=== PATIENT | female | born 1980 ===

== ENCOUNTER 2022-05-17 06:28 | Day surgery (SDC) | payer OTHER | END 2022-05-17 14:35 | disposition home or self-care (01) | LOC: CIR.AMB 06:28 | PROVIDERS: ATTEND Obstetrics & Gynecology Maternal & Fetal Medicine | DX: O02.1 Missed abortion (principal); O72.2 Delayed and secondary postpartum hemorrhage; Z20.822 Contact with and (suspected) exposure to COVID-19; E03.9 Hypothyroidism, unspecified; Z87.891 Personal history of nicotine dependence ==

== ENCOUNTER 2024-02-11 07:54 | Outpatient (CLI) | payer OTHER | END 2024-02-11 07:58 | disposition home or self-care (01) | LOC: SONOGRAMA 07:54 | PROVIDERS: ATTEND Pathology Anatomic Pathology & Clinical Pathology | DX: E04.2 Nontoxic multinodular goiter (principal); D34 Benign neoplasm of thyroid gland; E06.3 Autoimmune thyroiditis ==